=== PATIENT | male | born 1990 | race Caucasian/White ===

== ENCOUNTER → 2021-04-29 12:13 | Outpatient (BNVA) | payer OTHER, SELFPAY | PROVIDERS: Family Provider Pediatrics Adolescent Medicine; Visit Provider Psychiatry & Neurology Psychiatry | DX: F11.20 Opioid dependence, uncomplicated (principal); F15.20 Other stimulant dependence, uncomplicated; F33.1 Major depressive disorder, recurrent, moderate; F41.1 Generalized anxiety disorder; F43.12 Post-traumatic stress disorder, chronic; F17.200 Nicotine dependence, unspecified, uncomplicated; F12.20 Cannabis dependence, uncomplicated | CPT/HCPCS: 80307 ==

== ENCOUNTER → 2021-05-06 12:14 | Outpatient (BNVA) | payer OTHER, SELFPAY | PROVIDERS: Family Provider Pediatrics Adolescent Medicine; Visit Provider Psychiatry & Neurology Psychiatry | DX: F11.20 Opioid dependence, uncomplicated (principal); F15.20 Other stimulant dependence, uncomplicated; F33.1 Major depressive disorder, recurrent, moderate; F41.1 Generalized anxiety disorder; F43.12 Post-traumatic stress disorder, chronic; F17.200 Nicotine dependence, unspecified, uncomplicated; F12.20 Cannabis dependence, uncomplicated | CPT/HCPCS: 80307 ==

== ENCOUNTER → 2021-07-08 11:55 | Outpatient (BNVA) | payer OTHER, SELFPAY | PROVIDERS: Family Provider Pediatrics Adolescent Medicine; Visit Provider Psychiatry & Neurology Psychiatry | DX: F11.20 Opioid dependence, uncomplicated (principal); F15.20 Other stimulant dependence, uncomplicated; F33.1 Major depressive disorder, recurrent, moderate; F41.1 Generalized anxiety disorder; F43.12 Post-traumatic stress disorder, chronic; F17.200 Nicotine dependence, unspecified, uncomplicated; F12.20 Cannabis dependence, uncomplicated | CPT/HCPCS: 80307 ==

== ENCOUNTER → 2021-08-08 13:12 | Outpatient (BNVA) | payer OTHER, SELFPAY | PROVIDERS: Family Provider Pediatrics Adolescent Medicine; Visit Provider Psychiatry & Neurology Psychiatry | DX: F11.20 Opioid dependence, uncomplicated (principal) | CPT/HCPCS: 80307 ==

== ENCOUNTER → 2021-09-29 13:02 | Outpatient (BNVA) | payer OTHER, SELFPAY | PROVIDERS: Family Provider Pediatrics Adolescent Medicine; Visit Provider Psychiatry & Neurology Psychiatry | DX: F11.20 Opioid dependence, uncomplicated (principal) | CPT/HCPCS: 80307 ==

== ENCOUNTER 2021-10-28 08:40 | Emergency (ER) | payer MEDICAID, SELFPAY ==
[2021-10-28 08:47] VITALS: BP 137/93; PULSE 93; RESP 16; TEMP 36.8; O2SAT 98; BMI 31.4
--- NOTE | 2021-10-28 08:54 | CT_ITS ---
WS: [id number] CT FACIAL BONES TECHNIQUE: Contrast-enhanced facial bones with coronal and sagittal reformatted images. CLINICAL INFORMATION: mandibular abscess COMPARISON: None. DLP: 1102.[address] scans at [facility] use at least one of these dose optimization techniques: automated e xposure control; mA and/or kV adjustment per patient size (includes targeted exams where dose is matc hed to clinical indication); or iterative reconstruction. FINDINGS: Diffuse cellulitis and edema overlying the left mandible compatible with cellulitis. Underlying lorna ble is normal in appearance. No evidence of destructive changes to indicate osteomyelitis. No evidenc e of drainable abscess or fluid collection. Inflammatory changes and edema extends into the left neck with thickening of the platysma. Associated reactive left greater than right submandibular and upper cervical chain lymph nodes. Inflammatory stranding and edema extends into the learning disabled teacher space. Norm al oropharynx. No evidence of airway narrowing. No evidence of supraglottic or glottic mass. Small am ount of edema extends into the left parapharyngeal space. No drainable abscess or fluid collection. Paranasal sinuses and mastoid air cells are well aerated. Partially visualized intracranial contents are normal. CT/CT facial bones w con [id number] IMPRESSION: 1. Diffuse cellulitis overlying the left mandible with inflammatory stranding and edema extending into the learning disabled teacher space and submandibular space. No drain able abscess or fluid collection. 2. No evidence of osteomyelitis in the underlying mandible. 3. Reactive submandibular and upper cervical chain lymph nodes left greater th an right. 4. No critical airway stenosis. 5. Inflammatory stranding and edema extends into the left parapharyngeal space .
--- NOTE | 2021-10-28 08:54 | CT_ITS ---
WS: [id number] CT NECK TECHNIQUE: Contrast-enhanced CT of the neck with coronal and sagittal reformatted images. CLINICAL INFORMATION: neck/mandible abscess COMPARISON: None. DLP: 396.[address] scans at [facility] use at least one of these dose optimization techniques: automated e xposure control; mA and/or kV adjustment per patient size (includes targeted exams where dose is matc hed to clinical indication); or iterative reconstruction. FINDINGS: Diffuse cellulitis overlying the left mandible with extensive induration and subcutaneous edema. Smal l amount of fluid extends along the left platysma into the left neck. Suggestion of a tiny amount of phlegmon or developing abscess along the left mandible measuring 11 mm. No evidence of osteomyelitis in the underlying mandible. Reactive submandibular and upper cervical chain lymph nodes left greater than right. Inflammatory stranding and edema extends into the stopperer assembler space and left parapharyngea l fat. No critical airway stenosis. Mild edema in the left oropharynx. CT/CT neck w con* [id number] IMPRESSION: 1. Diffuse cellulitis overlying the left mandible with extension to the subman dibular and stopperer assembler space. 2. Suggestion of a tiny rim-enhancing collection adjacent to the left mandible suspicious for small focus of developing phlegmon or abscess measuring 11 mm. This is too small to drain. Recommend interval follow-up. 3. Inflammatory changes and edema extends into the left parapharyngeal fat and oropharynx 4. No critical airway stenosis. Attempted notification Rowdy Rangel DO at 10/28/2021 10:18 AM.
[2021-10-28] MEDS: iohexol 300 mg/mL 100 mL Btl IV ×2 (09:39→09:40)
[2021-10-28 09:43] LABS: Basophils # 0.1 10^3/uL (0.0-0.1); Basophils % 0.7 %; Eosinophils # 0.2 10^3/uL (0.0-0.8); Eosinophils % 2.8 %; Hematocrit 35.6 % (42.0-52.0); Hemoglobin 11.3 g/dL (11.7-16.6); Lymphocytes # 1.5 10^3/uL (0.8-4.8); Lymphocytes % 21.6 %; Mean Corpuscular HGB Conc 31.7 g/dL (30.0-36.0); Mean Corpuscular Volume 81.8 fl (80-94); Mean Platelet Volume 9.3 fL (7.4-10.4); Monocytes # 0.8 10^3/uL (0.2-0.9); Monocytes % 11.9 %; Neutrophils # 4.26 10^3/uL (1.8-7.7); Neutrophils % 62.7 %; Nucleated Red Blood Cells % 0 %; Platelet Count 247 10^3/cmm (130-400); Red Blood Count 4.35 10^6/uL (4.1-5.3); Red Cell Distribution Width 14.2 % (12.1-15.1); White Blood Count 6.8 10^3/uL (4.0-10.0)
[2021-10-28 09:58] LABS: Anion Gap 12.7 (5-19); Blood Urea Nitrogen 10 mg/dL (6-20); Calcium 8.3 mg/dL (8.5-10.5); Carbon Dioxide 26 mmol/L (22-29); Chloride 100 mmol/L (98-107); Glomerular Filtration Rate 196.6 mL/min (90-130); Glucose 106 mg/dL (65-115); Osmolality Calculated 279 mOsm/kg (285-295); Potassium 3.7 mmol/L (3.5-5.1); Sodium 135 mmol/L (136-145)
--- NOTE | 2021-10-28 10:34 | W.ED.DENTAL ---
HPI - Dental/Oral General: Chief complaint: Dental/Oral Stated complaint: Swollen face, tooth ache Time Seen by Provider: 10/28/21 08:42 History of Present Illness: HPI Narrative: 31-year-old male presents emergency room with complaints of swelling on the left side of his face. He states that low-grade fevers extremely tender. Patient has extremely poor dentition. He is not having difficulty breathing or swallowing saliva. It is uncomfortable to eat but not particularly painful. No other recent illness cough cold shortness of breath. MD Complaint: tooth pain Onset (ago): day(s) Duration: constant Severity: moderate Relieving factors: nothing Exacerbating factors: chewing Context: history of dental caries Associated symptoms: Denies ear or mastoid pain, fever(s), gum swelling, odynophagia, sore throat or tongue swelling Treatment prior to arrival: none Review of Systems Const: Denies: fever(s) ENMT: Denies: odynophagia or ear or mastoid pain Card: Denies: chest pain, edema, dyspnea on exertion or orthopnea Resp: Denies: dyspnea, productive cough or non-productive cough GI: Denies: abdominal pain, nausea, vomiting, hematemesis, coffee ground emesis, diarrhea, constipation, bloating, hematochezia or melena : Denies: flank pain, dysuria, urinary frequency or urinary urgency Skin/Breast: Denies: rash or pruritus All/Imm: Denies: tongue swelling [facility] ED PFSH: Medical History Psychiatric care Social History Smoking and tobacco status: current every day smoker cigarettes Packs smoked per day: 1 Years cigarettes smoked: 11 Quit status (tobacco): has tried quititng Number of times tried to quit tobacco: 1 Second hand smoke exposure: Yes Physical Exam Const: GENERAL APPEARANCE: cooperative and comfortable ORIENTATION/CONSCIOUSNESS: Yes awake, Yes oriented to person, Yes oriented to place and Yes oriented to time HENMT: COMMON NORMALS: normocephalic and atraumatic HEAD & SCALP: normocephalic and atraumatic OTHER: Significant mount of swelling only right side of the mandible. He has no stridor. No lymphadenopathy. No focal fluctuant areas no overlying erythema. Neck/C-Spine: COMMON NORMALS: no JVD Resp: COMMON NORMALS: normal respiratory effort, No retractions, No use of accessory muscles and clear to auscultation bilaterally AUSCULTATION: clear to auscultation bilaterally Cardio: COMMON NORMALS: no JVD, regular rate, regular rhythm and No murmurs present (Cardio) RATE: regular rate RHYTHM: regular rhythm GI: COMMON NORMALS: Soft to palpation and No hepatosplenomegaly present AUSCULTATION: Yes normoactive bowel sounds PALPATION: Yes Soft to palpation, No Tenderness to palpation present (GI), No Guarding due to palpation present (GI) and Yes No hepatosplenomegaly present Extremity: COMMON NORMALS: normal to inspection, capillary refill normal, no clubbing, cyanosis or edema, no calf tenderness and no pedal edema Neuro: SENSORIUM/ORIENTATION: Yes oriented to person, Yes oriented to place and Yes oriented to time Skin: COMMON NORMALS: no rashes or lesions noted GENERAL SKIN EXAM: no rashes or lesions noted Course Vital Signs: Vital signs: Vital Signs Temperature 98.2 F 10/28/21 08:47 Pulse Rate 89 10/28/21 11:44 Respiratory Rate 16 10/28/21 11:44 Blood Pressure 125/81 10/28/21 11:44 Pulse Oximetry 98 10/28/21 11:44 MDM - Dental/Oral MDM Narrative: Medical decision making narrative: Labs and imaging reviewed. Significant mount of swelling and cellulitis possibly early abscess on the CT. Is not drainable at this point he was given IV clindamycin here and will start him on Augmentin. Have him follow-up with oromaxillary facial surgery or with dentist tomorrow. We talked to oral maxillary facial surgery they have agreed to follow the patient tomorrow. Patient was contacted and given contact information for the oral maxillofacial group at surgery. Return if has further problems. Lab Data: Labs: Lab Results 10/28/21 10/28/21 09:30 09:30 WBC 6.8 10^3/uL 10^3/ uL (4.0-10.0) RBC 4.35 10^6/uL 10^6 /uL (4.1-5.3) Hgb 11.3 g/dL L g/dL (11.7-16.6) Hct 35.6 % L % (42.0-52.0) MCV 81.8 fl fl (80-94) MCH 26.0 pg L pg (28.0-34.0) MCHC 31.7 g/dL g/dL (30.0-36.0) RDW 14.2 % % (12.1-15.1) Plt Count 247 10^3/cmm 10^3 /cmm (130-400) MPV 9.3 fL fL (7.4-10.4) Neut % (Auto) 62.7 % % Lymph % (Auto) 21.6 % % [place] % (Auto) 11.9 % % Eos % (Auto) 2.8 % % Baso % (Auto) 0.7 % % Neut # (Auto) 4.26 10^3/uL 10^3 /uL (1.8-7.7) Lymph # (Auto) 1.5 10^3/uL 10^3/ uL (0.8-4.8) [place] # (Auto) 0.8 10^3/uL 10^3/ uL (0.2-0.9) Eos # (Auto) 0.2 10^3/uL 10^3/ uL (0.0-0.8) Baso # (Auto) 0.1 10^3/uL 10^3/ uL (0.0-0.1) Nucleated RBC % (a uto) 0 % % Nucleated RBCs # 0.0 /100WBC /100W BC Sodium 135 mmol/L L mmol /L (136-145) Potassium 3.7 mmol/L mmol/L (3.5-5.1) Chloride 100 mmol/L mmol/L (98-107) Carbon Dioxide 26 mmol/L mmol/L (22-29) Anion Gap 12.7 (5-19) BUN 10 mg/dL mg/dL (6-20) Creatinine 0.5 mg/dL L mg/dL (0.7-1.2) GFR Calculation 196.6 mL/min H mL /min (90-130) Glucose 106 mg/dL mg/dL (65-115) Calculated Osmolal ity 279 mOsm/kg L mOs m/kg (285-295) Calcium 8.3 mg/dL L mg/dL (8.5-10.5) Discharge Plan Discharge Patient Disposition: Home Clinical Impression: Dental caries Condition: Stable Prescriptions: New Augmentin 875-125 mg tablet 1 tab PO BID Qty: 20 RF: 0 No Action Aleve 220 mg Tablet 440 mg PO Q12H PRN (Reason: Pain) RF: 0 prazosin 5 mg capsule 5 mg PO BEDTIME RF: 0 buprenorphine-naloxone 8-2 mg tablet, sublingual 2 tab sublingual QAM RF: 0 Cymbalta 30 mg capsule,delayed release(DR/EC) 30 mg PO QAM RF: 0 Discharge Orders: Discharge ED (Routine); Ordered 10/28/21 Ordered By: Rowdy Rangel Referrals: Wilbur Colmenares Jr, MD [Family Provider] - Patient Instructions: Opioid Safety Coding Level of Care Code ED Message Broker Developer for Fredyg Fwd Exam Comprehensive
[2021-10-28] MEDS: clindamycin 900 MG/50 ML PREMIX 100 MG IV (10:49)
[2021-10-28 11:44] VITALS: BP 125/81; PULSE 89; RESP 16; O2SAT 98
== END 2021-10-28 11:45 | disposition home or self-care (01) ==
PROVIDERS: Emergency Provider Family Medicine; Family Provider Pediatrics Adolescent Medicine
DX: K02.9 Dental caries, unspecified (principal); F17.210 Nicotine dependence, cigarettes, uncomplicated
CPT/HCPCS: 70487; 70491; 80048; 85025; 87040; 96365; 99283; J3490; Q9967